=== PATIENT | male | born 1985 | race Caucasian/White ===

== ENCOUNTER 2017-09-09 00:37 | Emergency (ER) | payer BC, OTHER ==
[2017-09-09] MEDS ORDERED: AMOXicillin 250 MG CAP ONE (01:55)
[2017-09-09] MEDS ORDERED: predniSONE 20 MG TAB ONE (01:55)
== END 2017-09-09 02:00 | disposition home or self-care (01) ==
LOC: MADERS 00:37
DX: J01.90 Acute sinusitis, unspecified (principal); E78.5 Hyperlipidemia, unspecified; I10 Essential (primary) hypertension; G89.29 Other chronic pain; Z79.891 Long term (current) use of opiate analgesic; Z79.899 Other long term (current) drug therapy
CPT/HCPCS: 99283; J7506

== ENCOUNTER 2018-05-10 00:47 | Emergency (ER) | payer BC | END 2018-05-10 01:45 | disposition home or self-care (01) | LOC: MADERS 00:47 | DX: R42 Dizziness and giddiness (principal); E78.5 Hyperlipidemia, unspecified; I10 Essential (primary) hypertension; Z79.899 Other long term (current) drug therapy | CPT/HCPCS: 99283 ==

== ENCOUNTER 2018-07-21 21:00 | Emergency (ER) | payer BC ==
[2018-07-21] MEDS ORDERED: Ibuprofen 800 MG TAB ONE (21:36)
== END 2018-07-21 22:30 | disposition home or self-care (01) ==
LOC: MADERS 21:00
DX: B34.9 Viral infection, unspecified (principal); E78.5 Hyperlipidemia, unspecified; I10 Essential (primary) hypertension; Z79.899 Other long term (current) drug therapy
CPT/HCPCS: 87081; 87430; 87804; 99283

== ENCOUNTER 2019-08-12 05:07 | Emergency (ER) | payer BC | END 2019-08-12 06:03 | disposition home or self-care (01) | LOC: MADERS 05:07 | DX: J30.9 Allergic rhinitis, unspecified (principal); E78.5 Hyperlipidemia, unspecified; E78.00 Pure hypercholesterolemia, unspecified; I10 Essential (primary) hypertension; Z79.899 Other long term (current) drug therapy; Z79.891 Long term (current) use of opiate analgesic | CPT/HCPCS: 87804; 99283 ==

== ENCOUNTER 2019-11-16 21:16 | Emergency (ER) | payer BC | END 2019-11-16 21:58 | disposition home or self-care (01) | LOC: MADERS 21:16 | DX: Z00.00 Encounter for general adult medical examination without abnormal findings (principal); I10 Essential (primary) hypertension; E78.5 Hyperlipidemia, unspecified; E78.00 Pure hypercholesterolemia, unspecified; Z79.899 Other long term (current) drug therapy | CPT/HCPCS: 99283 ==